=== PATIENT | male | born 1990 | race American Indian/Alaskan Native ===

== ENCOUNTER 2017-05-25 06:17 | Day surgery (SDC) | payer OTHER ==
[2017-05-25] MEDS ORDERED: DILAUDID ONE (07:16)
[2017-05-25] MEDS ORDERED: DIPRIVAN 10 MG/ML IV ONE ×2 (07:16→08:23)
[2017-05-25] MEDS ORDERED: DECADRON ONE (07:18)
[2017-05-25] MEDS ORDERED: ZOFRAN ONE (07:18)
[2017-05-25] MEDS ORDERED: MORPHINE IV PRN (07:26)
[2017-05-25] MEDS ORDERED: TORADOL IV PRN (07:26)
[2017-05-25] MEDS ORDERED: PERCOCET 5/325 PO PRN (07:26)
--- NOTE | 2017-05-25 07:26 | Anesthesia Day of Surgery ---
Anesthesia Day of Surgery - Day of Surgery Patient Examined: Yes Patient H&P Reviewed: Yes Patient is NPO: Yes
--- NOTE | 2017-05-25 07:26 | Anesthesia Consultation ---
Anesthesia Consult and Med Hx Date of service: 05/25/17 - Airway Anesthetic Teeth Evaluation: Good ROM Head & Neck: Adequate Mental/Hyoid Distance: Adequate Mallampati Class: Class I Intubation Access Assessment: Probably Good - Pulmonary Exam CTA: Yes - Cardiac Exam Cardiac Exam: RRR - Pre-Operative Health Status ASA Pre-Surgery Classification: ASA2 Proposed Anesthetic Plan: General - Pulmonary Hx Smoking: Yes (light occasional smoker [facility] 2007) Hx Asthma: No - Cardiovascular System Hx Hypertension: No - Central Nervous System Hx Psychiatric Problems: No - Endocrine Hx Renal Disease: No - Other Systems Hx Alcohol Use: Yes (once a week) Hx Substance Use: No Hx Cancer: No
[2017-05-25] MEDS ORDERED: HYDROGEN PEROXIDE ONE (07:56)
[2017-05-25] MEDS ORDERED: LACTATED RINGERS 1,000 ML IV SCH (08:00)
[2017-05-25] MEDS ORDERED: PEPCID PO NR (08:00)
[2017-05-25] MEDS ORDERED: VERSED IV NR (08:00)
[2017-05-25] MEDS ORDERED: MARCAINE 0.25% INFILTRATI ONE ×2 (08:13)
[2017-05-25] MEDS ORDERED: NACL 0.9% IR ONE (08:13)
[2017-05-25] MEDS ORDERED: HEPARIN SUB-Q NR (08:15)
[2017-05-25] MEDS ORDERED: ROBINUL ONE (08:30)
[2017-05-25] MEDS ORDERED: LACTATED RINGERS 1,000 ML ONE (08:45)
[2017-05-25] MEDS ORDERED: TORADOL ONE (08:46)
--- NOTE | 2017-05-25 08:59 | Post Operative Note ---
Pre-op diagnosis: Right breast mass Post-op diagnosis: same Procedure: Excisional biopsy of right breast mass Anesthesia: other (gen by LMA) Surgeon: DELICIA COHEN Estimated blood loss: minimal Pathology: list (Right breast mass) Specimen disposition: to lab Condition: stable Disposition: PACU
--- NOTE | 2017-05-25 09:04 | Post Anesthesia Evaluation ---
- Post Anesthesia Evaluation Patient Participated: Yes Airway Patent: Yes Stable Respiratory Function: Yes Nausea/Vomiting: No Temp > 96.8F: Yes Pain Manageable: Yes Adequeate Hydration: Yes Anesthesia Complications: No Block Receding Appropriately: Not Applicable Patient on Ventilator: No
[2017-05-25 09:53] VITALS: BP 112/61
--- NOTE | 2017-05-28 09:44 | Operative Report ---
Operative Report Operative Report: Date of operation: 05/25/2017 Pre-op dx: Right breast mass Post-op dx: Same Operation: Excisional biopsy of right breast mass Surgeon: David Jones MD Anesthesia: General EBL: Minimal Specimens: Right breast mass There were no complications, drains or cultures. Description of procedure: Pt was placed supine on the OR table. General anesthesia was administered. The right breast was prepped and draped. The periareolar skin and SQ tissue from 7-11 o'clock were infiltrated with 6 ml of 0.5% Marcaine. The periareolar skin was incised from 7-11 o'clock. The right breast mass was excised with sharp and electrocautery dissection. Hemostasis was excellent. The incision was closed with a running subcuticular suture of 4-0 Monocryl. The wound was dressed with a sterile pressure dressing and Tegaderm. Pt tolerated the procedure well and was taken to PACU in stable condition.
== END 2017-05-25 10:10 | disposition home or self-care (01) ==
LOC: OR 06:17
PROVIDERS: ATTEND Surgery
DX: N63.0 Unspecified lump in unspecified breast (principal); N60.31 Fibrosclerosis of right breast; F17.200 Nicotine dependence, unspecified, uncomplicated
CPT/HCPCS: 19120; 88307; J1100; J1170; J1644; J1885; J2250; J2405; J2704; J7120